=== PATIENT | male | born 1990 | race Caucasian/White ===

== ENCOUNTER 2020-07-09 09:42 | Observation (INO) | payer OTHER ==
[~2020-07-09] VITALS: Ht 185.4 cm; Wt 127.0 kg
[~2020-07-09 09:42] MED LIST: SERT50 PO; TRAZ150T57 PO
[2020-07-09] MEDS ORDERED: AMOCLA875 PO (10:58)
[2020-07-09 11:12] LABS: BASOPHILS ABSOLUTE AUTO 0.06 K/mm3 (0.00-0.23); BASOPHILS PERCENT AUTO 1 % (0-2); EOSINOPHILS ABSOLUTE AUTO 0.33 K/mm3 (0.00-0.68); EOSINOPHILS PERCENT AUTO 4 % (0-6); Hematocrit 44.3 % (37.0-53.0); Hemoglobin 14.3 g/dL (13.5-17.5); IMMATURE GRAN ABSOLUTE AUTO 0.03 K/mm3 (0.00-0.10); IMMATURE GRAN PERCENT AUTO 0 % (0-1); LYMPHOCYTES ABSOLUTE AUTO 2.23 K/mm3 (0.84-5.20); LYMPHOCYTES PERCENT AUTO 25 % (21-46); MONOCYTES ABSOLUTE AUTO 0.86 K/mm3 (0.16-1.47); MONOCYTES PERCENT AUTO 10 % (4-13); Mean Corpuscular HGB 27.1 pg (26.0-34.0); Mean Corpuscular HGB Conc 32.3 g/dL (31.5-36.5); Mean Corpuscular Volume 84 fL (80-100); Mean Platelet Volume 10.6 fL (9.1-12.4); NEUTROPHILS ABSOLUTE AUTO 5.59 K/mm3 (1.96-9.15); NEUTROPHILS PERCENT AUTO 61 % (41-73); Platelet Count 237 K/mm3 (150-400); RDW Coefficient Variation 12.3 % (11.7-14.2); RDW Standard Deviation 37.6 fL (35.1-46.3); Red Blood Cell Count 5.28 M/mm3 (4.30-5.90)
[2020-07-09 11:30] LABS: Alanine Aminotransfer (ALT/SGP 21 U/L (12-78); Albumin, Blood 3.4 g/dL (3.4-5.0); Albumin/Globulin Ratio 0.8 (0.8-1.8); Alk Phos 71 U/L (50-136); Anion Gap 4 mmol/L (6-16); Aspartate Aminotrans (AST/SGOT 11 U/L (12-37); Bilirubin, Total 0.7 mg/dL (0.1-1.0); Blood Urea Nitrogen 10 mg/dL (8-24); Bun/Creatinine Ratio 14.4 (12.0-20.0); CO2, Blood 27 mmol/L (21-32); Calcium, Blood 8.6 mg/dL (8.5-10.1); Chloride, Blood 109 mmol/L (98-108); Creatinine, Blood 0.69 mg/dL (0.60-1.20); Glomerular Filtration Rate >60 (60-); Glucose, Blood 77 mg/dL (70-99); Potassium, Blood 3.9 mmol/L (3.5-5.5); Sodium, Blood 140 mmol/L (136-145); Total Protein, Blood 7.4 g/dL (6.4-8.2)
--- NOTE | 2020-07-09 15:10 | NUR ---
ADMIT PT ARRIVED TO UNIT AT APROX 1445 FROM ER. PT DENIES PAIN AT THIS TIME. REPORTS INCREASED PAIN W/BM. PT NPO
--- NOTE | 2020-07-10 04:30 | NUR ---
SHIFT SUMMARY PT RESTED WELL T/O NIGHT. AAOX4. NPO. PT REPORTING MINIMAL DISCOMFORT THIS SHIFT, DENIES PAIN MEDS/NAUSEA. VSS. PERIANAL ABSCESS WITH REDNESS NOTED, NO DRAINAGE. NO ACUTE CHANGES OVER NIGHT. PT CURRENTLY RESTING WITH CALL LIGHT IN REACH.
--- NOTE | 2020-07-10 10:32 | NUR ---
PT A&O, TAKEN BY CHET TO PRE-OP RN. PT HAS 20G SL IN LFA THAT FLUSHES WELL.
--- NOTE | 2020-07-10 12:59 | NUR ---
PT BACK FROM OR, A&O X4, IV SALINE LOCKED, PT JACQUELIN PAIN AND NAUSEA AT THIS TIME, PT ON RA AND LUNGS CLEAR. INSECENTIVE SPIROMETER GIVEN AND INSTRUCTED HOW TO USE. PT TOLERATED ORAL FLUIDS. CALL LIGHT IN REACH.
--- NOTE | 2020-07-10 16:07 | NUR ---
PT IS A&O AND AMBULATES INDEPEDENTLY IN ROOM. PT HAD PROCEDURE PERFORMED THIS SHIFT AND HAS GUAZE IN PLACE TO PERINEUM, PT REPORTS BROWN/RED COLORED DISCHARGE ON GUAZE AFTER USING RESTROOM. PT HAS A REGULAR DIET AND TOLORATED IT WELL. PT HAS DENIED PAIN/NAUSEA THIS SHIFT. PT HAS CALL LIGHT WITHIN REACH AND WILL REPORT TO NOC RN.
[2020-07-10] MEDS ORDERED: HYDR1TAB94 PO (19:43)
--- NOTE | 2020-07-10 22:32 | NUR ---
DISCHARGE SUMMARY: PT DISCHARGED HOME AT APPROX 2049. DISCHARGE INFORMATION GIVEN AND PT AWARE OF FOLLOW UP APPOINTMENT. PT EDUCATED ON SIGNS/SYMPTOMS OF INFECTION AND WHEN TO CALL DOCTOR/SURGICAL FLOOR. SCRIPT PLACED IN DISCHARGE PACKET. PT REPORTS PAIN AT A TOLERABLE LEVEL PRIOR TO DISCHARGE. PT AMBULATING, JESSICA PO AND VOIDING. ALL PERSONAL BELONGINGS AND WOUND CARE SENT HOME WITH PATIENT. PT REPORTS UNDERSTANDING ALL EDUCATION PROVIDED AND LEFT WITHOUT FURTHER QUESTIONS/CONCERNS.
== END 2020-07-10 20:50 | disposition home or self-care (01) ==
LOC: ER 09:42 → SURS 09:43
PROVIDERS: Emergency Medicine; ADMIT Surgery
PROC: 0D9Q7ZZ Drainage of Anus, Via Natural or Artificial Opening (ICD-10-PCS; principal; 2020-07-10 10:45)
DX: K61.0 Anal abscess (principal); Z20.828 Contact with and (suspected) exposure to other viral communicable diseases; E78.5 Hyperlipidemia, unspecified; G47.33 Obstructive sleep apnea (adult) (pediatric); F41.9 Anxiety disorder, unspecified; F32.9 Major depressive disorder, single episode, unspecified; E66.9 Obesity, unspecified; Z87.891 Personal history of nicotine dependence; Z79.899 Other long term (current) drug therapy; Z68.36 Body mass index [BMI] 36.0-36.9, adult; K59.00 Constipation, unspecified
CPT/HCPCS: 36415; 74177; 80053; 82947; 85025; 96365; 96366; 96374-59; 96375-59; 99284-25; G0378; J0295; J1100; J1650; J1885; J2250; J2405; J2704; J3010; J7040; J7120; Q2038; Q9967; U0003

== ENCOUNTER → 2021-09-06 | Outpatient (CLI) | payer OTHER ==
[~2021-09-06] MED LIST changes: +AMOCLA875 PO; +HYDR1TAB94 PO
[2021-09-06 13:28] LABS: Total Testosterone, Adult Male 173 ng/dL (175-781)
[2021-09-06 13:49] LABS: Vitamin D, 25-Hydroxy 36 ng/mL (32-80)
== END | disposition home or self-care (01) ==
LOC: LAB SHORT 09:15 → LAB 09:15
PROVIDERS: Nurse Practitioner
DX: E29.1 Testicular hypofunction (principal); E55.9 Vitamin D deficiency, unspecified
CPT/HCPCS: 82306; 84403

== ENCOUNTER → 2022-05-12 | Outpatient (CLI) | payer OTHER | END | disposition home or self-care (01) | LOC: LAB SHORT 12:31 → LAB 12:31 | DX: J02.9 Acute pharyngitis, unspecified (principal) | CPT/HCPCS: 87081 ==

== ENCOUNTER → 2022-09-13 | Outpatient (CLI) | payer OTHER ==
[2022-09-13 15:42] LABS: Prostate Specific Antigen 0.613 ng/mL (0.000-4.000)
== END | disposition home or self-care (01) ==
LOC: LAB 12:54 → LAB SHORT 12:54
PROVIDERS: Student in an Organized Health Care Education/Training Program
DX: R35.89 Other polyuria (principal)
CPT/HCPCS: 84153; 87086